=== PATIENT | female | born 1950 | race Caucasian/White ===

== ENCOUNTER → 2018-04-12 | Outpatient (CLI) | payer OTHER ==
[~2018-04-12] MED LIST: ALEVE220 MG PO; ALPRAZOLAM 0.0.25 M1 PO; AMBIEN 10 MG TA10 MG PO; ASPIR 8181 MG PO; BIOTIN2500 MCG PO; CENTRUM SILVER1 EAC4 PO; COLACE100 MG PO; ENOXAPARIN40 MG/0.1 SUBQ; ESCITALOPRAM OX20 MG PO; GLUCOSAMINE CH1 EAC7 PO; HAIR, SKIN & N1 EAC2 PO; HEMP OIL PO; HYDROCODON-ACE1 EAC7 PO; LEXAPRO 10 MG T10 M1 PO; LOXAPINE5 MG PO; NORCO 5-325 TA1 EACH PO; NORVASC 5 MG TAB5 MG PO; PERCOCET 10-321 EACH PO; PRAVACHOL40 MG PO; PREMPRO 0.3 MG1 EACH PO; PRILOSEC 20 MG20 MG PO; PROBIOTIC1 EAC1 PO; PROBIOTIC1 EACH PO; PROTONIX40 M1 PO; QUETIAPINE FUMA50 M1 PO; SENNA PO; SIMVASTATIN40 MG PO; VITAMIN D2000 UNIT PO; VITAMIN E400 UNI2 PO; XANAX 0.5 MG0.5 MG PO; XANAX1 MG PO; ZANTAC 150MG T150 MG PO; ZOCOR 10 MG TAB10 MG PO
== END ==
LOC: RAD 14:26
DX: S22.41XD Multiple fractures of ribs, right side, subsequent encounter for fracture with routine healing (principal); J98.11 Atelectasis; I10 Essential (primary) hypertension; X58.XXXD Exposure to other specified factors, subsequent encounter

== ENCOUNTER 2018-04-13 05:43 | Day surgery (SDC) | payer OTHER ==
[~2018-04-13] VITALS: Ht 162.6 cm; Wt 104.3 kg
--- NOTE | ~2018-04-13 | EKG ---
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: Keena BRISENO : 1950 Requested By: Jose Lebron Order Number: [id number] MD: Antoine Moyer Measurements Intervals [place] Rate: 85 P: 65 HI: 183 QRS: 3 QRSD: 74 T: 72 QT: 494 QTc: 588 Interpretive Statements Sinus rhythm Nonspecific T wave abnormality Prolonged QT interval Compared to ECG 02/16/2015 08:50:06 No significant change was found Electronically Signed On 04-13-2018 14:59:53 CDT by Antoine Moyer [email or web address] <ELECTRONICALLY SIGNED> By: Antoine Moyer MD, [facility] 04/13/18 1459 1318 1318 Antoine Moyer MD, [facility] /EPI
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
[2018-04-13 13:43] VITALS: BP 165/82
[2018-04-13 15:21] VITALS: BP 165/82
== END 2018-04-13 16:00 | disposition home or self-care (01) ==
LOC: OR 05:43 → TBA 05:43 → OR 14:16
DX: S20.01XA Contusion of right breast, initial encounter (principal); I10 Essential (primary) hypertension; E78.5 Hyperlipidemia, unspecified; F31.81 Bipolar II disorder; F41.9 Anxiety disorder, unspecified; Z85.828 Personal history of other malignant neoplasm of skin; Z87.442 Personal history of urinary calculi; Z98.890 Other specified postprocedural states; K21.9 Gastro-esophageal reflux disease without esophagitis; Z96.653 Presence of artificial knee joint, bilateral; Z79.899 Other long term (current) drug therapy; Z79.82 Long term (current) use of aspirin; V89.2XXA Person injured in unspecified motor-vehicle accident, traffic, initial encounter; Y92.89 Other specified places as the place of occurrence of the external cause; Y99.8 Other external cause status; Y93.89 Activity, other specified
CPT/HCPCS: 50010; 50101; 50331; 50386; 50417; 56526; 56528